=== PATIENT | male | born 1995 | race Caucasian/White ===

== ENCOUNTER 2018-10-23 01:27 | Emergency (ER) | payer OTHER, SELFPAY ==
[2018-10-23] MEDS ORDERED: Ondansetron PF 4 MG/2 ML Vial ONE (01:47)
[2018-10-23 01:58] LABS: #Eosinphils 0.1 thou/uL (0.0-0.7); #Lymphocytes 2.1 thou/uL (1.20-3.40); #Monocytes 0.7 thou/uL (0.11-0.59); #Neutrophils 4.9 thou/uL (1.40-6.50); %Basophils 0.4 % (0.0-1.0); %Eosinophils 1.1 % (0.0-10.0); %Lymphocytes 26.4 % (21.0-51.0); %Monocytes 9.4 % (0.0-10.0); %Neutrophils 62.7 % (42.0-75.0); Hemoglobin 14.1 g/dL (14.0-18.0); Mean Corpuscular HGB CONC 34.5 g/dL (32.0-36.0); Mean Corpuscular Hemoglobin 31.3 pg (27.0-31.0); Platelet Count 296 thou/uL (130-400); RBC Distribution Width 11.2 % (11.5-14.5); Red Blood Cell (RBC) Count 4.51 mill/uL (4.70-6.10); White Blood Cell (WBC) Count 7.9 thou/uL (4.8-10.8)
[2018-10-23 02:21] LABS: ALT (SGPT) 12 U/L (8-55); AST (SGOT) 19 U/L (5-34); Acetaminophen Less than 6.0 mcg/mL (10.0-30.0); Albumin 4.3 g/dL (3.5-5.0); Alcohol 239 mg/dL (Less than 10); Alkaline Phosphatase 53 U/L (40-150); Anion Gap 15 mmol/L (10-20); BUN (Urea Nitrogen) 9 mg/dL (8.9-20.6); Bilirubin, Total 0.3 mg/dL (0.2-1.2); Calc. Creatinine Clearance 0 mL/min (70-130); Calcium 8.3 mg/dL (7.8-10.44); Carbon Dioxide 22 mmol/L (22-29); Chloride 109 mmol/L (98-107); Estimated GFR-MDRD Greater than 90; Globulin 2.6 g/dL (2.4-3.5); Glucose 105 mg/dL (70-105); Potassium 3.6 mmol/L (3.5-5.1); Protein, Total 6.9 g/dL (6.0-8.3); Salicylate Less than 8.0 mg/dL (15.0-30.0); Sodium 142 mmol/L (136-145)
--- NOTE | 2018-10-23 10:01 | CT ---
PRELIMINARY REPORT/[facility]/EMERGENTY AFTER-HOURS PROCEDURE CT Head Without Contrast EXAM DATE/TIME: 10/23/2018 2:06 AM CLINICAL HISTORY: 23 years old, male; Signs and symptoms; Other: Unresposive; Patient HX: M21 reports to ed via ems C/O alcohol abuse. PT was found on the street, unresponsive and not talking. PT now knows name. PT repor ts drinking, with no pain or drugs/pills. PT vomited x2. Medication allergies include penicillin. PT was given half bag and 4 zofran en route. TECHNIQUE: Axial computed tomography images of the head/brain without contrast. COMPARISON: No relevant prior studies available. FINDINGS: Brain: Normal. No hemorrhage. No significant white matter disease. No edema. Ventricles: Normal. No ventriculomegaly. Bones/joints: Normal. No acute fracture. Sinuses: Normal as visualized. No acute sinusitis. Mastoid air cells: Normal as visualized. No mastoid effusion. Soft tissues: Normal. IMPRESSION: No acute intracranial abnormality. Thank you for allowing us to participate in the care of your patient. Dictated and Authenticated by: Michael Hernandez MD 10/23/2018 2:22 AM Central Time ([place] & [place]) FINAL REPORT EMERGENT AFTER HOURS NONCONTRAST CT HEAD: DATE: 10/23/2018. HISTORY: Alcohol abuse. Altered mental status and unresponsive. COMPARISON: None available. IMPRESSION: 1. No acute intracranial abnormality is demonstrated. 2. Findings are in agreement with the preliminary report by [facility]. POS: [facility]
== END 2018-10-23 05:59 | disposition home or self-care (01) ==
LOC: ERS 01:27
DX: F10.129 Alcohol abuse with intoxication, unspecified (principal); R41.82 Altered mental status, unspecified; Y90.7 Blood alcohol level of 200-239 mg/100 ml
CPT/HCPCS: 70450; 80053; 80307; 85025; 96361; 96374; J2405